=== PATIENT | female | born 2000 | race Caucasian/White ===

== ENCOUNTER 2021-03-18 05:29 | Emergency (ER) | payer OTHER ==
[2021-03-18] MEDS ORDERED: MOTRIN600 MG PO (06:56)
== END 2021-03-18 07:10 | disposition home or self-care (01) ==
LOC: FER 05:29
DX: S93.401A Sprain of unspecified ligament of right ankle, initial encounter (principal); X58.XXXA Exposure to other specified factors, initial encounter
CPT/HCPCS: 73610; 73630